=== PATIENT | female | born 1955 | race Caucasian/White ===

== ENCOUNTER → 2021-12-24 09:45 | Outpatient (BNVA) | payer MEDICARE, SELFPAY | PROVIDERS: Family Provider Family Medicine; PCP Registered Nurse; Visit Provider Registered Nurse | DX: E11.9 Type 2 diabetes mellitus without complications (principal); M79.10 Myalgia, unspecified site; R53.83 Other fatigue | CPT/HCPCS: 80053; 80061; 82607; 83036; 85025; 85651; 86140 ==

== ENCOUNTER → 2022-04-11 11:55 | Outpatient (BNVA) | payer MEDICARE, SELFPAY | PROVIDERS: Family Provider Family Medicine; PCP Registered Nurse; Referring Provider Registered Nurse; Visit Provider Anesthesiology Pain Medicine | DX: M54.50 Low back pain, unspecified (principal); M79.604 Pain in right leg; M79.605 Pain in left leg | CPT/HCPCS: 72120; 99204 ==

== ENCOUNTER 2022-05-08 10:00 | Outpatient (CLI) | payer MEDICARE, SELFPAY ==
--- NOTE | 2022-05-08 10:15 | MR_ITS ---
WS: [id number] MRI LUMBAR SPINE NONCONTRAST TECHNIQUE: Sagittal T1, T2 and STIR imaging. Axial T1 and T2 imaging. CLINICAL INFORMATION: M48.062 - Spinal stenosis, lumbar region with neurogenic ... COMPARISON: None. FINDINGS: Mild lumbar curve. No acute compression. Anterolisthesis L5 on S1 measuring 5 mm. Chronic spondylolysis. Disc space narrowing worse L5-S1. Sma ll central protrusions T8-T9 and T10-T11 L1-L2: Moderate facet arthropathy. Spinal canal and foramen are patent. L2-L3: No significant disc bulging. Moderate facet arthropathy. Spinal canal and foramen are patent. L3-L4: Mild annular bulging. Mild central canal stenosis. Narrowing of subarticular recess bilaterall y LEFT greater than RIGHT. Mild LEFT greater than RIGHT foraminal narrowing. Moderate facet arthropat hy with small facet effusions. L4-L5: Mild annular bulging with slight effacement of ventral thecal sac. Narrowing of the RIGHT suba rticular recess. Impingement traversing RIGHT L5 nerve root. Mild RIGHT and no significant LEFT jeri inal narrowing. Moderate facet arthropathy with small facet effusions. L5-S1: Grade 1 anterolisthesis with disc space narrowing. Mild disc bulging with slight effacement of ventral thecal sac. Moderate facet arthropathy. Mild to moderate RIGHT greater than LEFT foraminal n arrowing. Annular bulging with slight narrowing of the LEFT subarticular recess. Visualized pelvic bony structures: Normal. Paravertebral soft tissues: Normal. MR/MR lumbar spine wo con* [id number] IMPRESSION: 1. Mild lumbar curve. No acute compression. Grade 1 anterolisthesis L5 on S1 w ith chronic spondylolysis. 2. Mild central canal stenosis L3-L4 with impingement LEFT greater than RIGHT subarticular recess. 3. Annular bulging L4-L5 impinges the traversing RIGHT L5 nerve root in the pond barticular recess. Mild RIGHT L4-L5 foraminal narrowing. 4. Disc bulge L5-S1 with slight contact of the LEFT S1 nerve root. 5. Mild to moderate bilateral L5-S1 foraminal narrowing RIGHT greater than LEF T. 6. Moderate facet arthropathy L2-L3, L3-L4, L4-L5 and L5-S1. Small facet effus ions at L3-L4 and L4-L5.
== END 2022-05-08 10:01 | disposition home or self-care (01) ==
PROVIDERS: PCP Registered Nurse; Visit Provider Anesthesiology Pain Medicine
DX: M48.062 Spinal stenosis, lumbar region with neurogenic claudication (principal); M47.817 Spondylosis without myelopathy or radiculopathy, lumbosacral region; M48.07 Spinal stenosis, lumbosacral region; M51.37 Other intervertebral disc degeneration, lumbosacral region; M51.06 Intervertebral disc disorders with myelopathy, lumbar region
CPT/HCPCS: 72148

== ENCOUNTER → 2022-06-06 10:36 | Outpatient (BNVA) | payer MEDICARE, SELFPAY | PROVIDERS: PCP Registered Nurse; Visit Provider Anesthesiology Pain Medicine | DX: M54.50 Low back pain, unspecified (principal); M79.604 Pain in right leg; M79.605 Pain in left leg | CPT/HCPCS: 99214 ==

== ENCOUNTER → 2022-06-20 14:29 | Outpatient (BNVA) | payer MEDICARE, SELFPAY | PROVIDERS: PCP Registered Nurse; Visit Provider Anesthesiology Pain Medicine | DX: M54.16 Radiculopathy, lumbar region (principal); M79.604 Pain in right leg; M79.605 Pain in left leg | CPT/HCPCS: 64483; 64484; J1100; J3490 ==

== ENCOUNTER → 2022-07-02 09:48 | Outpatient (BNVA) | payer MEDICARE, SELFPAY | PROVIDERS: PCP Registered Nurse; Visit Provider Surgery | DX: K21.9 Gastro-esophageal reflux disease without esophagitis (principal); R13.10 Dysphagia, unspecified; R14.0 Abdominal distension (gaseous) | CPT/HCPCS: 99203 ==

== ENCOUNTER 2022-07-03 09:54 | Day surgery (SDC) | payer MEDICARE, SELFPAY ==
[2022-07-02 11:26] VITALS: BMI 37.2
[2022-07-03 10:53] VITALS: BP 188/98; PULSE 68; RESP 14; TEMP 36.6; O2SAT 96
[2022-07-03] MEDS: sodium chloride 0.9% 1,000 ML 30 ML IV (11:13)
[2022-07-03 11:19] LABS: Glucose Point of Care 134 mg/dL (70-110)
--- NOTE | 2022-07-03 12:23 | P.ANESASSM_ITS ---
Pre-Anesthetic Assessment Height/Weight: Height 1.6 m Weight 95.254 kg Temp Pulse Resp BP Pulse Ox O2 Del Method 98 F 68 14 188/98 96 Room Air 07/03/22 10:53 07/03/22 10:53 07/03/22 10:53 07/03/22 10:53 07/03/22 10:53 07/03/22 10:53 Operation Date: 07/03/22 11:45 Proposed Procedures p EGD Dilation W/ Balloon [id number],K21.9<R13.10(Not Applicable) - Rob Guerrero DO Familial anesthetic complications: none Was Beta Bc taken within 24 hours: N/A Was Clonidine taken within 24 hours: N/A Last intake: Intake Last Liquid Date 07/02/22 Last Liquid Time 17:00 Last Solid Date 07/02/22 Last Solid Time 17:00 Social No alcohol and No tobacco Exam alert, oriented x 3, clear to auscultation bilaterally and regular rate & rhythm Airway Submandibular: within normal limits Cervical ROM: within normal limits Mallampati: Class I Dentition: full Pulmonary None reported CV/HEM Hypertension Hepatic None reported GI Gastroesophageal Reflux Disease (controlled) Metabolic Diabetes Mellitus and Morbid Obesity [facility] [place] Fibromyalgia, Lower Back Pain and Osteoarthritis/DJD Neuropsych Anxiety Anesthetic Plan ASA status: 3 Anesthesia: MAC Risk of > 500 ml blood loss (7ml/kg in children): No Medications/Allergies Home Medications Medication Instructions Recorded Confirmed Last Taken Type amlodipine 10 mg tablet 10 mg PO DAILY 12/24/21 07/03/22 07/02/22 History lisinopril 10 mg tablet 10 mg PO DAILY 12/24/21 07/03/22 07/02/22 History metformin 500 mg tablet 500 mg PO DAILY 12/24/21 07/03/22 07/02/22 History hydrocodone 5 mg-acetaminophen 325 1 tab PO .DAY PRN Pain 04/11/22 07/03/22 Unknown History mg tablet pantoprazole 40 mg tablet,delayed 40 mg PO BID 6 weeks #84 tabs 07/02/22 07/03/22 Unknown Rx release (Protonix) Allergies Allergy/AdvReac Type Severity Reaction Status Date / Time No Known Allergies Allergy Verified 07/02/22 11:23 Current Medications Generic Name Dose Route Start Last Admin Trade Name Freq PRN Reason Stop Dose Admin Sodium Chloride 1,000 mls @ 30 mls/hr 07/03/22 10:45 07/03/22 11:13 Sodium Chloride 0.9% IV 07/04/22 10:44 30 mls/hr .Q24H CHANTELLE Administration PFSH Anesthesia Medical History Arthritis Diabetes mellitus Fibromyalgia Hyperlipidemia Hypertension Surgical History History of cholecystectomy History of colon resection History of ovarian cystectomy History of tubal ligation Family History Mother CAD (coronary artery disease) Cancer Diabetes Hyperlipidemia Hypertension Sister Cancer Diabetes Hyperlipidemia Hypertension Denies family history of Clotting disorder Dementia Chronic kidney disease (CKD) Lung disease Stroke Social History Smoking and tobacco status: never smoked Second hand smoke exposure: No Alcohol intake: never Substance/Drug Use: never Adopted: No Caregiver/support person: No Lives independently: No Household members: spouse Marital status: service: No Current occupational status: retired Sexually active: Yes Do you think of yourself as: Straight/Heterosexual Current gender identity: Female Data Anesthesia Cardiac Studies: No Data to Display
--- NOTE | 2022-07-03 12:30 | W.PM.OPSUD ---
Surgery/Procedure H&P Update DATE OF PROCEDURE: July 03, 2022 DATE H&P PERFORMED: 07/02/22 H&P UPDATE INFORMATION: I have reviewed H&P completed within last 30 days, I have examined patient prior to procedure and No changes to prior documentation PLANNED PROCEDURE: Operation Date: 07/03/22 11:45 Proposed Procedures p EGD Dilation W/ Balloon [id number],K21.9<R13.10(Not Applicable) - Rob Guerrero, DO
[2022-07-03 12:44] VITALS: BP 128/65; PULSE 58; RESP 18; TEMP 36.5; O2SAT 98
[2022-07-03 12:49] VITALS: BP 145/77; PULSE 58; RESP 18; O2SAT 97
[2022-07-03 12:59] VITALS: BP 140/82; PULSE 56; RESP 18; O2SAT 97
--- NOTE | 2022-07-03 15:39 | ANE.PACU2 ---
Inpatient post-anesthesia follow up: Airway intact: Yes Vital signs: Temperature 97.7 F Pulse Rate 56 Respiratory Rate 18 Blood Pressure 140/82 Pulse Oximetry 97 Oxygen Delivery Me thod Room Air Oxygen Flow Rate 2 Fraction of Inspir ed Oxygen Hydration adequate: Yes Nausea and vomiting: No Pain level: 1 Mental status: Baseline
== END 2022-07-03 13:14 | disposition home or self-care (01) ==
PROVIDERS: PCP Registered Nurse; Visit Provider Surgery
DX: K21.9 Gastro-esophageal reflux disease without esophagitis (principal); R13.10 Dysphagia, unspecified; E11.9 Type 2 diabetes mellitus without complications; E66.01 Morbid (severe) obesity due to excess calories; Z68.37 Body mass index [BMI] 37.0-37.9, adult; R14.0 Abdominal distension (gaseous)
CPT/HCPCS: 36416; 43239; 82962; 88305; J2704; J7030

== ENCOUNTER → 2022-07-04 14:00 | Outpatient (BNVA) | payer MEDICARE, SELFPAY | PROVIDERS: PCP Registered Nurse; Visit Provider Anesthesiology Pain Medicine | DX: M54.16 Radiculopathy, lumbar region (principal); M79.604 Pain in right leg; M79.605 Pain in left leg | CPT/HCPCS: 64483; 64484; J1100; J3490 ==

== ENCOUNTER → 2022-07-18 16:54 | Outpatient (BNVA) | payer MEDICARE, SELFPAY | PROVIDERS: PCP Registered Nurse; Visit Provider Surgery | DX: Z09 Encounter for follow-up examination after completed treatment for conditions other than malignant neoplasm (principal) | CPT/HCPCS: 99024; 99212 ==

== ENCOUNTER → 2022-07-25 10:02 | Outpatient (BNVA) | payer MEDICARE, SELFPAY | PROVIDERS: PCP Registered Nurse; Visit Provider Anesthesiology Pain Medicine | DX: M51.37 Other intervertebral disc degeneration, lumbosacral region (principal); M79.604 Pain in right leg; M79.605 Pain in left leg | CPT/HCPCS: 99214 ==

== ENCOUNTER → 2022-08-12 13:05 | Outpatient (BNVA) | payer MEDICARE, SELFPAY | PROVIDERS: PCP Registered Nurse; Visit Provider Anesthesiology Pain Medicine | DX: M47.816 Spondylosis without myelopathy or radiculopathy, lumbar region (principal); M79.604 Pain in right leg; M79.605 Pain in left leg | CPT/HCPCS: 64493; 64494; 64495; J3490 ==

== ENCOUNTER → 2022-09-05 09:08 | Outpatient (BNVA) | payer MEDICARE, SELFPAY | PROVIDERS: PCP Registered Nurse; Visit Provider Anesthesiology Pain Medicine | DX: M51.37 Other intervertebral disc degeneration, lumbosacral region (principal); M79.604 Pain in right leg; M79.605 Pain in left leg | CPT/HCPCS: 99214 ==

== ENCOUNTER → 2022-10-07 09:49 | Outpatient (BNVA) | payer MEDICARE, SELFPAY | PROVIDERS: PCP Registered Nurse; Visit Provider Anesthesiology Pain Medicine | DX: M54.16 Radiculopathy, lumbar region (principal); M79.604 Pain in right leg; M79.605 Pain in left leg | CPT/HCPCS: 99214 ==

== ENCOUNTER → 2022-11-07 09:43 | Outpatient (BNVA) | payer MEDICARE, SELFPAY | PROVIDERS: PCP Registered Nurse; Visit Provider Anesthesiology Pain Medicine | DX: M79.604 Pain in right leg; M79.605 Pain in left leg; M43.16 Spondylolisthesis, lumbar region; M48.061 Spinal stenosis, lumbar region without neurogenic claudication; M47.816 Spondylosis without myelopathy or radiculopathy, lumbar region | CPT/HCPCS: 99214 ==

== ENCOUNTER → 2023-09-19 09:18 | Outpatient (BNVA) | payer MEDICARE, SELFPAY | PROVIDERS: PCP Registered Nurse; Visit Provider Nurse Practitioner Family | DX: D48.5 Neoplasm of uncertain behavior of skin (principal); L57.0 Actinic keratosis; L82.0 Inflamed seborrheic keratosis; L30.4 Erythema intertrigo; L82.1 Other seborrheic keratosis; D22.39 Melanocytic nevi of other parts of face; L81.4 Other melanin hyperpigmentation | CPT/HCPCS: 11102; 17000; 17110; 99204 ==

== ENCOUNTER → 2024-04-30 14:21 | Outpatient (BNVA) | payer MEDICARE, SELFPAY | PROVIDERS: PCP Registered Nurse; Visit Provider Registered Nurse | DX: J32.9 Chronic sinusitis, unspecified (principal) | CPT/HCPCS: 87400 ==

== ENCOUNTER → 2024-10-13 15:23 | Outpatient (BNVA) | payer MEDICARE, SELFPAY | PROVIDERS: PCP Registered Nurse; Visit Provider Nurse Practitioner Family | DX: D22.39 Melanocytic nevi of other parts of face (principal); L81.4 Other melanin hyperpigmentation; D48.5 Neoplasm of uncertain behavior of skin | CPT/HCPCS: 11102; 99213 ==

== ENCOUNTER → 2024-11-02 09:50 | Outpatient (BNVA) | payer MEDICARE, SELFPAY | PROVIDERS: PCP Registered Nurse; Visit Provider Registered Nurse | DX: E11.9 Type 2 diabetes mellitus without complications (principal); E55.9 Vitamin D deficiency, unspecified | CPT/HCPCS: 80053; 80061; 81000; 82306; 82607; 83036; 85025 ==

== ENCOUNTER 2024-12-30 17:19 | Emergency (ER) | payer MEDICARE, SELFPAY ==
[2024-12-30 17:22] VITALS: BP 175/87; PULSE 64; RESP 17; TEMP 36.4; O2SAT 100; BMI 37.2
--- OUTSIDE RECORDS SUMMARY | 2024-12-30 17:24 | XMS_ITS | Encounter Summary ---
Author Organization [facility] Address [address] [place] [address] Care Team Providers Care Casing In Line Feeder Name Role Phone Trudy Huynh MD Primary Care Provider +1- [phone] Encounter Details Date Type Department Care Team (Latest Contact Info) Description 03/18/2000 Outpatient Historical [facility] Medicine [address] [phone] Krishan Aguilar MD Rectal/anal hemorrhage (Primary Dx) Social History Tobacco Use Types Packs/Day Years Used Date Smoking Tobacco: Never Assessed Comments Unknown Sex and Gender Information Value Date Recorded Sex Assigned at Not on file 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
--- OUTSIDE RECORDS SUMMARY | 2024-12-30 17:24 | XMS_ITS | Encounter Summary ---
Author Organization [email or web address] [facility] Address [address] [place] [address] Care Team Providers Care Strip Presser Name Role Phone Trudy Huynh MD Primary Care Provider +1- [phone] Encounter Details Date Type Department Care Team (Late st Contact Info) Description 11/12/2018 Ancillary Orders [facility] [address] [place] [address] Trudy Huynh MD [address] [place] [address] Right upper quadrant pain Social History Tobacco Use Types Packs/Day Years Used Date Smoking Tobacco: Never Alcohol Use Standard Drinks/Week Comments No 0 (1 standard drink = 0.6 oz pur e alcohol) Feeling Safe Answer Date Recorded Within the last year, have y ou been afraid of your partner or ex-partner? Patient declined 06/17/2018 Within the last year, have y ou been humiliated or emotionally abused in other ways by your partner or ex-partner? Patient declined 06/17/2018 Within the last year, have y ou been kicked, hit, slapped, or otherwise physically hurt by your partner or ex-partner? Patient declined 06/17/2018 Within the last year, have y ou been raped or forced to have any kind of sexual activity by your partner or ex-partner? Patient declined 06/17/2018 Social Connections Answer Date Recorded In a typical week, how many times do you talk on the phone with family, friends, or neighbors? Patient declined 06/17/2018 How often do you get togethe r with friends or relatives? Patient declined 06/17/2018 How often do you attend pentecostal or denominational serv ices? Patient declined 06/17/2018 Do you belong to any clubs o r organizations such as pentecostal groups, unions, fraternal or athletic groups, or school groups? Patient declined 06/17/2018 How often do you attend meet ings of the clubs or organizations you belong to? Patient declined 06/17/2018 Are you , , di vorced, , never , or living with a partner? Patient declined 06/17/2018 Financial Resource Strain Answer Date R ecorded How hard is it for you to pa y for the very basics like food, housing, medical care, and heating? Patient declined 06/17/2018 Food Insecurity Answer Date Recorded Within the past 12 months, y ou worried that your food would run out before you got the money to buy more. Patient declined Within the past 12 months, t he food you bought just didn't last and you didn't have money to get more. Patient declined Transportation Needs Answer Date Record ed In the past 12 months, has l ack of transportation kept you from medical appointments or from getting medications? Patient declined 06/17/2018 In the past 12 months, has l ack of transportation kept you from meetings, work, or from getting things needed for daily living? 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
--- OUTSIDE RECORDS SUMMARY | 2024-12-30 17:24 | XMS_ITS | Encounter Summary ---
Author Organization [facility] Address [address] [place] [address] Care Team Providers Care Dish Carrier Name Role Phone Trudy Huynh MD Primary Care Provider +1- [phone] Encounter Details Date Type Department Care Team (Late st Contact Info) Description 06/08/2018 Ancillary Orders [facility] Admitting [address] [place] [address] Trudy Huynh MD [address] [place] [address] Pain in left shoulder Social History Tobacco Use Types Packs/Day Years Used Date Smoking Tobacco: Never Alcohol Use Standard Drinks/Week Comments No 0 (1 standard drink = 0.6 oz pur e alcohol) Comments No Sex and Gender Information Value Date Recorded Sex Assigned at Not on file 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 Narrative 06/08/2018 1:35 PM CDT Exam: XR SHOULDER 2+ VW LEFT Date/Time of Exam: 06/08/2018 12:51 PM Reason For Exam: See Diagnosis. Diagnosis: Pain in left shoulder. Comparison: None. Findings: There is no evidence of an acute fracture or dislocation. The joints appear well-maintained. The bone density and soft tissues appear appropriate. Procedure Note Arik Ann, DO - 06/08/2018 Exam: XR SHOULDER 2+ VW LEFT Date/Time of Exam: 06/08/2018 12:51 PM Reason For Exam: See Diagnosis. Diagnosis: Pain in left shoulder. Comparison: None. Findings: There is no evidence of an acute fracture or dislocation. The joints appear well-maintained. The bone density and soft tissues appear appropriate. IMPRESSION: No acute osseous or specific articular abnormality. us Trudy Huynh MD DIAGNOSTIC IMAGING ORDERAB LES Final Result documented in this encounter Visit Diagnoses Diagnosis Pain in left shoulder Pain in joint, shoulder region Pain in left shoulder Pain in joint, shoulder region documented in this encounter Care Teams Dish Carrier Relationship Specialty Start Date End Date Trudy Huynh MD [address] [place] [address] PCP - General Family Practice 08/29/14 documented as of this encounter
--- OUTSIDE RECORDS SUMMARY | 2024-12-30 17:24 | XMS_ITS | Encounter Summary ---
Author Organization [facility] Address [address] [place] [address] Care Team Providers Care Technician Terminal And Repeater Name Role Phone Trudy Huynh MD Primary Care Provider +1- [phone] Encounter Details Date Type Department Care Team (Latest Contact Info) Description 03/11/2000 Outpatient Historical [facility] Medicine [address] [phone] Krishan Aguilar MD Rectal/anal hemorrhage (Primary Dx) Social History Tobacco Use Types Packs/Day Years Used Date Smoking Tobacco: Never Assessed Comments Unknown Sex and Gender Information Value Date Recorded Sex Assigned at Not on file 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
--- OUTSIDE RECORDS SUMMARY | 2024-12-30 17:24 | XMS_ITS | Encounter Summary ---
Author Organization [facility] Address [address] [place] [address] Care Team Providers Care Acoustical Carpenter Name Role Phone Trudy Huynh MD Primary Care Provider +1- [phone] Reason for Referral * Radiology Services (Routine) - Closed Specialty Diagnoses / Procedures Referred By Contac t Referred To Contact Radiology Diagnoses Asymptomatic menopausal state Procedures XR DEXA BONE DENSITY AXIAL 1 OR MORE SITES Trudy Huynh MD [address] [place] [address] Phone: tel: fax: [facility] [address] [facility] [address] [place] [address] Phone: tel: fax: Referral ID Status Reason Start Date Expiration Date V isits Requested Visits Authorized [id number] Closed [facility] View CTS to Schedule 02/01/2020 03/03/2021 1 1 DRIVER Encounter Details Date Type Department Care Team (Latest Contact Info) Description 02/01/[address] [facility] Scheduling [address] [facility] [address] [place] [address] Trudy Huynh MD [address] [place] [address] Asymptomatic menopausal state Social History Tobacco Use Types Packs/Day Years [...] declined 06/17/2018 How often do you attend rastafari or restorationist serv ices? 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 No / Unsure 02/02/2020 2:56 PM BUS DRIVER documented as of this encounter Plan of Treatment Not on file documented as of this encounter Results * XR DEXA BONE DENSITY AXIAL 1 OR MORE SITES (02/09/2020 1:55 PM BUS DRIVER) Anatomical Region Laterality Modality Digital Radiogra phy 02/09/2020 2:00 PM BUS DRIVER Impressions 02/09/2020 4:02 PM BUS DRIVER IMPRESSION: Bone mineral density values fall within the normal range. NOF guidelines recommend consideration of FDA-approved medical therapies in patients with FRAX determined 10-year probabilities of hip/major osteoporosis-related fractures equal or greater than 3%/20% respectively. Consider assessing fracture risk using the FRAX analysis tool for guidance of clinical management available online at www.shef.ac.uk/FRAX/. [employer] for Select DXA and the Femoral Neck BMD value. [id number] Narrative 02/09/2020 4:02 PM BUS DRIVER DEXA Evaluation of the Lumbar Spine and Left Proximal Femur Reason For Exam: See Diagnosis. Evaluation of bone mineral density. Diagnosis: Asymptomatic menopausal state. The following absorptiometry data were obtained. The quality of this examination is acceptable with regards to count density, processed images, data display and lack of important artifacts (including but not limited to motion and attenuation artifacts). Serial examination number 1. L1-L4 BMD (g/cm2): 1.113 Adult T-score: 0.6 LEFT FEMORAL NECK BMD (g/cm2): 0.823 Adult T-score: -0.2 LEFT TOTAL HIP BMD (g/cm2): 1.084 Adult T-score: 1.2 Procedure Note Rob Lui MD - 02/09/2020 DEXA Evaluation of the Lumbar Spine and Left Proximal Femur Reason For Exam: See Diagnosis. Evaluation of bone mineral density. Diagnosis: Asymptomatic menopausal state. The following absorptiometry data were obtained. The quality of this examination is acceptable with regards to count density, processed images, data display and lack of important artifacts (including but not limited to motion and attenuation artifacts). Serial examination number 1. L1-L4 BMD (g/cm2): 1.113 Adult T-score: 0.6 LEFT FEMORAL NECK BMD (g/cm2): 0.823 Adult T-score: -0.2 LEFT TOTAL HIP BMD (g/cm2): 1.084 Adult T-score: 1.2 IMPRESSION: Bone mineral density values fall within the normal range. NOF guidelines recommend consideration of FDA-approved medical therapies in patients with FRAX determined 10-year probabilities of hip/major osteoporosis-related fractures equal or greater than 3%/20% respectively. Consider assessing fracture risk using the FRAX analysis tool for guidance of clinical management available online at www.shef.ac.uk/FRAX/. Enter [employer] for Select DXA and the Femoral Neck BMD value. [id number] us Trudy Huynh MD DIAGNOSTIC IMAGING ORDERAB LES Final Result documented in this encounter Visit Diagnoses Diagnosis Asymptomatic menopausal state Asymptomatic postmenopausal status (age-related) (natural) Asymptomatic menopausal state Asymptomatic postmenopausal status (age-related) (natural) documented in this encounter Care Teams Acoustical Carpenter Relationship Specialty Start Date End Date Trudy Huynh MD [address] [place] [address] PCP - General Family Practice 08/29/14 documented as of this encounter
--- OUTSIDE RECORDS SUMMARY | 2024-12-30 17:24 | XMS_ITS | Encounter Summary ---
Author Organization [employer] [facility] Address [address] [place] [address] Care Team Providers Care Manager Privacy Name Role Phone Trudy Huynh MD Primary Care Provider +1- [phone] Encounter Details Date Type Department Care Team (Late st Contact Info) Description 11/12/2018 Ancillary Orders [facility] [address] [place] [address] Trudy Huynh MD [address] [place] [address] Right upper quadrant pain Social [...] declined 06/17/2018 How often do you attend scientologist or adventist serv ices? 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 Exam: XR RIBS UNILATERAL RIGHT W PA CHEST Date/Time of Exam: 11/12/2018 11:22 AM Reason For Exam: See Diagnosis. Diagnosis: Right upper quadrant pain. Findings: No apparent acute osseous pathology of imaged skeleton with specific attention to right ribs. Lungs and cardiac silhouette unremarkable. No pleural effusion or pneumothorax. IMPRESSION: No apparent acute pathology. Narrative Procedure Note Pat Jones MD - 11/12/2018 IMPRESSION: Please see below. Exam: XR RIBS UNILATERAL RIGHT W PA CHEST Date/Time of Exam: 11/12/2018 11:22 AM Reason For Exam: See Diagnosis. Diagnosis: Right upper quadrant pain. Findings: No apparent acute osseous pathology of imaged skeleton with specific attention to right ribs. Lungs and cardiac silhouette unremarkable. No pleural effusion or pneumothorax. IMPRESSION: No apparent acute pathology. us Trudy Huynh MD DIAGNOSTIC IMAGING ORDERAB LES Final Result documented in this encounter Visit Diagnoses Diagnosis Right upper quadrant pain Abdominal pain, right upper quadrant Right upper quadrant pain Abdominal pain, right upper quadrant documented in this encounter Care Teams Manager Privacy Relationship Specialty Start Date End Date Trudy Huynh MD [address] [place] [address] PCP - General Family Practice 08/29/14 documented as of this encounter
--- OUTSIDE RECORDS SUMMARY | 2024-12-30 17:24 | XMS_ITS | Encounter Summary ---
Author Organization [employer] [facility] Address [address] [place] [address] Care Team Providers Care Gas Maker Name Role Phone Trudy Huynh MD Primary Care Provider +1- [phone] Encounter Details Date Type Department Care Team (Late st Contact Info) Description 02/25/2019 Ancillary Orders [employer] [place] [address] [place] [address] Trudy Huynh MD [address] [place] [address] Dorsalgia, unspecified Social History Tobacco Use Types Packs/Day Years [...] declined 06/17/2018 How often do you attend christianity or methodist serv ices? 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 Exam: XR LUMBAR SPINE 2 OR 3 VW Date/Time of Exam: 02/25/2019 3:35 PM Reason For Exam: See Diagnosis. Diagnosis: Dorsalgia, unspecified. Findings: The lumbar spine shows mild anterior subluxation at L5-S1 apparently from pars defects. Moderate to prominent disc space narrowing is seen. The spine above L5 is unremarkable. The SI joints and hips are grossly normal. IMPRESSION: L5 spondylolysis, grade 1 spondylolisthesis and moderate to prominent bony DDD changes at L5-S1. Narrative Procedure Note Nathaniel Ma MD - 02/26/2019 IMPRESSION: Please see below. Exam: XR LUMBAR SPINE 2 OR 3 VW Date/Time of Exam: 02/25/2019 3:35 PM Reason For Exam: See Diagnosis. Diagnosis: Dorsalgia, unspecified. Findings: The lumbar spine shows mild anterior subluxation at L5-S1 apparently from pars defects. Moderate to prominent disc space narrowing is seen. The spine above L5 is unremarkable. The SI joints and hips are grossly normal. IMPRESSION: L5 spondylolysis, grade 1 spondylolisthesis and moderate to prominent bony DDD changes at L5-S1. us Trudy Huynh MD DIAGNOSTIC IMAGING ORDERAB LES Final Result documented in this encounter Visit Diagnoses Diagnosis Dorsalgia, unspecified Dorsalgia, unspecified documented in this encounter Care Teams Gas Maker Relationship Specialty Start Date End Date Trudy Huynh MD [address] [place] [address] PCP - General Family Practice 08/29/14 documented as of this encounter
--- OUTSIDE RECORDS SUMMARY | 2024-12-30 17:24 | XMS_ITS | Clinical Summary ---
Author Organization [facility] Address [address] [place] [address] Phone Care Team Providers Care Employment Service Specialist Name Role Phone Trudy Huynh MD Primary Care Provider +1- [phone] Allergies Active Allergy Reactions Criticality Noted Date Comments Aspirin Other (See Comments) 08/19/2016 Rapid heart rate Medications lisinopril (PRINIVIL) 20 mg tablet Take 20 mg by mouth daily. Active amLODIPine (NORVASC) 10 mg tablet Take 10 mg by mouth daily. Active hydroCHLOROthia zide (MICROZIDE) 12.5 mg capsule Take 12.5 mg by mouth daily. Active ERGOCALCIFEROL, VITAMIN D2, (VITAMIN D ORAL) Take by mouth. Active metFORMIN (GLUCOPHAGE) 500 mg tablet Take 500 mg by mouth daily with breakfast. Active ALPRAZolam (XANAX) 0.5 mg tablet Take 0.5 mg by mouth nightly as needed for Anxiety. Active Active Problems Problem Noted Date Diagnosed Date Chest pain 08/20/2016 Benign hypertension 08/20/2016 Family History Medical History Relation Name Comments Coronary Artery Disease Mother Relation Name Status Comments Mother s/p CABG in her 50's Social History Tobacco Use Types Packs/Day Years [...] declined 06/17/2018 How often do you attend latter-day or samaritan serv ices? 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 Gender Identity Not on file Sexual Orientation Not on file Last Filed Vital Signs Vital Sign Reading Time Taken Comments Blood Pressure 168/71 06/17/2018 11:01 PM CDT Pulse 76 06/17/2018 11:01 PM CDT Temperature 9 C (48.2 F) 06/17/2018 11:47 PM CDT Respiratory Rate 20 06/17/2018 11:01 PM CDT Oxygen Saturation 99% 06/17/2018 11:01 PM CDT Inhaled Oxygen Concentration - - Weight 88.5 kg (195 lb) 06/17/2018 10:31 PM CDT Height 160 cm (5' 3 ) 06/17/2018 10:31 PM CDT Body Mass Index 34.54 06/17/2018 10:31 PM CDT Plan of Treatment Health Maintenance Due Date Last Done Comments DTAP/TDAP/TD VACCINES (1 - Tdap) 1972 BREAST CANCER SCREENING 1993 COLORECTAL SCREENING 1998 FIT-DNA Q 3 years 1998 FIT/FOBT Q 1 year 1998 PNEUMOCOCCAL VACCINE 50+ YEARS (1 of 1 - PCV) 10/21/19 04 ZOSTER VACCINE (1 of 2) 10/21/2003 Colorectal Cancer Screening 03/18/2005 Flex Sig/CT Colonography Q 5 years 03/18/20052000 INFLUENZA VACCINE (#1) 2024 OSTEOPOROSIS SCREENING 02/08/2025 02/09/2020 RSV VACCINE (60+ or ) (1 - 1-dose 75+ series) 2028 Procedures Procedure Name Priority Date/Time Associated Diagnosis Comments XR DEXA BONE DENSITY AXIAL 1 OR MORE SITES Routine 02/09/2020 1:55 PM ELECTRONIC SALES AND SERVICE TECHNICIAN Asymptomatic menopausal state from Last 3 Months or Most Recently Relevant to Health Maintenance Results * XR DEXA BONE DENSITY AXIAL 1 OR MORE SITES (02/09/2020 1:55 PM ELECTRONIC SALES AND SERVICE TECHNICIAN) Anatomical Region Laterality Modality Digital Radiogra phy 02/09/2020 2:00 PM ELECTRONIC SALES AND SERVICE TECHNICIAN Impressions 02/09/2020 4:02 PM ELECTRONIC SALES AND SERVICE TECHNICIAN IMPRESSION: Bone mineral density values fall within the normal range. NOF guidelines recommend consideration of FDA-approved medical therapies in patients with FRAX determined 10-year probabilities of hip/major osteoporosis-related fractures equal or greater than 3%/20% respectively. Consider assessing fracture risk using the FRAX analysis tool for guidance of clinical management available online at www.shef.ac.uk/FRAX/. Enter [employer] for Select DXA and the Femoral Neck BMD value. [id number] Narrative 02/09/2020 4:02 PM ELECTRONIC SALES AND SERVICE TECHNICIAN DEXA Evaluation of the Lumbar Spine and [...] clinical management available online at www.shef.ac.uk/FRAX/. Enter [employer] for Select DXA and the Femoral Neck BMD value. [id number] us Trudy Huynh MD DIAGNOSTIC IMAGING ORDERAB LES Final Result from Last 3 Months or Most Recently Relevant to Health Maintenance Insurance BLUE CROSS [employer]WAY(X) EXCHANGE Member Subscriber Plan / Payer (Ef fective 2018-Present) Name:Yenni Carmona Relation to Subscriber:Spouse Name:ALICE CARMONA Date of :1956 (Home) Address: [address] [place], [place] [address] [place] [address] Payer ID:[id number] (NAIC) Type:[employer] Address: [address] EPO Advance Directives For more information, please contact: [phone] * Full Code (Latest Code Status on File) Date Activated Date Inactivated Comments 08/20/2016 3:14 AM 08/21/2016 1:26 PM Care Teams Employment Service Specialist Relationship Specialty Start Date End Date Trudy Huynh MD [address] [place] [address] PCP - General Family Practice 08/29/14
--- OUTSIDE RECORDS SUMMARY | 2024-12-30 17:24 | XMS_ITS | Clinical Summary ---
Author Organization [facility] Address [address] Attn: Epic Prelude [place]T [place] [address] Care Team Providers Care Surveillance Manager Name Role Phone Trudy Huynh MD Primary Care Provider +1- [phone] Allergies Active Allergy Reactions Criticality Noted Date Comments Aspirin Other (See Comments) 08/19/2016 Rapid heart rate Medications metFORMIN (GLUCOPHAGE) 500 mg tablet Take 500 mg by mouth daily with breakfast. 06/17/2018 Active ALPRAZolam (XANAX) 0.5 mg tablet Take 0.5 mg by mouth nightly as needed for Anxiety. 06/17/2018 Active lisinopriL (PRINIVIL) 20 mg tablet Take 20 mg by mouth daily. 08/19/2016 Active amLODIPine (NORVASC) 10 mg tablet Take 10 mg by mouth daily. 08/19/2016 Active hydroCHLOROthia zide (MICROZIDE) 12.5 mg capsule Take 12.5 mg by mouth daily. 08/19/2016 Active ergocalciferol, vitamin D2, (VITAMIN D ORAL) Take by mouth. 08/19/2016 Active Active Problems Problem Noted Date Diagnosed Date Benign hypertension 08/20/2016 Chest pain 08/20/2016 Encounters Date Type Department Care Team Description 12/15/2024 External Device Data ST[facility] ABSTRACTION Provider, Abstract 12/14/2024 External Device Data ST[facility] ABSTRACTION Provider, Abstract 11/16/2024 External Device Data [facility] ABSTRACTION Provider, Abstract 11/09/2024 External Device Data ST[facility] ABSTRACTION Provider, Abstract 11/02/2024 External Device Data ST[facility] ABSTRACTION Provider, Abstract 2024 Orders Only [facility] [address] [place] [address] Shyam Marrero MD 10/19/2024 1:15 PM CDT Office Visit [facility] [place] [id number] [place] [address] Shyam Marrero MD Arthrosis of left acromioclavicular joint; Chronic left shoulder pain from Last 3 Months Family History Medical History Relation Name Comments Coronary Artery Disease Mother Relation Name Status Comments Mother s/p CABG in her 50's Social History Tobacco Use Types Packs/Day Years Used Date Smoking Tobacco: Never Alcohol Use Standard Drinks/Week Comments No 0 (1 standard drink = 0.6 oz pur e alcohol) Comments Unknown Sex and Gender Information Value Date Recorded Sex Assigned at Not on file Legal Sex Female 12:58 AM ELECTRICAL ENGINEERING DESIGNER Gender Identity Not on file Sexual Orientation Not on file Last Filed Vital Signs Vital Sign Reading Time Taken Comments Blood Pressure 138/70 10/19/2024 12:47 PM CDT Pulse 76 06/17/2018 11:01 PM CDT Temperature 9 C (48.2 F) 06/17/2018 11:47 PM CDT Respiratory Rate 20 06/17/2018 11:01 PM CDT Oxygen Saturation - - Inhaled Oxygen Concentration - - Weight 96.2 kg (212 lb) 10/19/2024 12:47 PM CDT Height 160 cm (5' 3 ) 10/19/2024 12:47 PM CDT Body Mass Index 37.55 10/19/2024 12:47 PM CDT Plan of Treatment Upcoming Encounters Date Type Department Care Team (Latest Contact Info) Description 02/07/2025 10:31 AM ELECTRICAL ENGINEERING DESIGNER Hospital Encounter [facility] [address] [place] [address] Shyam Marrero MD [address] [place] [address] Arthrosis of left acromioclavicular joint 02/07/2025 10:31 AM ELECTRICAL ENGINEERING DESIGNER - 02/07/2025 12:21 PM ELECTRICAL ENGINEERING DESIGNER Surgery [facility] [address] [place] [id number] Shyam Marrero MD [address] [place] [phone] SHOULDER ARTHROSCOPY 03/01/2025 10:45 AM ELECTRICAL ENGINEERING DESIGNER Office Visit [facility] [address] [place] [phone] Deann Brooks PA [address] [place] [phone] Scheduled Procedures Name Priority Associated Diagnoses Date/Ti me SHOULDER ARTHROSCOPY Arthrosis of left acromioclavicular joint 02/07/2025 10:31 AM ELECTRICAL ENGINEERING DESIGNER SHOULDER W/ DISTAL CLAVICLE RESECTION ARTHROSCOPIC Arthrosis of left acromioclavicular joint 02/07/2025 10:31 AM ELECTRICAL ENGINEERING DESIGNER Health Maintenance Due Date Last Done Comments DTAP/TDAP/TD VACCINES (1 - Tdap) 1972 BREAST CANCER SCREENING 1993 COLORECTAL SCREENING 1998 Colorectal Cancer Screening 1998 FIT-DNA Q 3 years 1998 FIT/FOBT Q 1 year 1998 Flex Sig/CT Colonography Q 5 years 1998 PNEUMOCOCCAL VACCINE 50+ YEA RS (1 of 1 - PCV) 10/21/2003 ZOSTER VACCINE (1 of 2) 10/21/2003 Medicare Advantage ([place]) Prev entative Visit/Annual Wellness Visit 02/25/2024 INFLUENZA VACCINE (#1) 2024 COVID-19 Vaccine (3 - 2024- season) 10/25/202402/2020, 09/23/2020 RSV VACCINE (60+ or ) (1 - 1-dose 75+ series) 2028 OSTEOPOROSIS SCREENING 03/10/2029 5, 02/09/2020, 02/09/2020 Goals Goal Patient Goal Type Associated Problems Recent Progress Patient-Stated? Author Autogenerat ed Goal Care Plan Autogenerated Problem No Hoda Guerrero Procedures Procedure Name Priority Date/Time Associated Diagnosis Comments XR DEXA BONE DENSITY AXIAL 1 OR MORE SITES Routine 03/10/2024 9:16 AM ELECTRICAL ENGINEERING DESIGNER Asymptomatic postmenopausal status from Last 3 Months or Most Recently Relevant to Health Maintenance Results * (ABNORMAL) XR DEXA BONE DENSITY AXIAL 1 OR MORE SITES (03/10/2024 9:16 AM ELECTRICAL ENGINEERING DESIGNER) T-SCORE HIP (LEFT) 1.00 -1.0 - 1.0 INTERFACE SYSTEM T-SCORE SPINE 1.20(A) -1.0 - 1.0 INTER FACE SYSTEM Anatomical Region Laterality Modality Digital Radiogra phy, Mammography 03/10/2024 9:17 AM ELECTRICAL ENGINEERING DESIGNER Impressions 03/10/2024 10:21 AM ELECTRICAL ENGINEERING DESIGNER IMPRESSION: Bone mineral density values fall within the normal range as above. NOF guidelines recommend consideration of FDA-approved medical therapies in patients with FRAX determined 10-year probabilities of hip/major osteoporosis-related fractures equal or greater than 3%/20% respectively. Consider assessing fracture risk using the FRAX analysis tool for guidance of clinical management available online at www.shef.ac.uk/FRAX/. Enter [employer] for Select DXA and the Femoral Neck BMD value. Narrative 03/10/2024 10:21 AM ELECTRICAL ENGINEERING DESIGNER DEXA Evaluation of the Lumbar Spine and Left Proximal Femur Reason For Exam: See Diagnosis. Evaluation of bone mineral density. Diagnosis: Asymptomatic postmenopausal status. The following absorptiometry data were obtained. The quality of this examination is acceptable with regards to count density, processed images, data display and lack of important artifacts (including but not limited to motion and attenuation artifacts). Serial examination number 2. L1-L4 BMD (g/cm2): 1.175 Adult T-score: 1.2 LEFT FEMORAL NECK BMD (g/cm2): 0.783 Adult T-score: -0.6 LEFT TOTAL HIP BMD (g/cm2): 1.066 Adult T-score: 1 Procedure Note Rob Lui MD - 03/10/2024 DEXA Evaluation of the Lumbar Spine and Left Proximal Femur Reason For Exam: See Diagnosis. Evaluation of bone mineral density. Diagnosis: Asymptomatic postmenopausal status. The following absorptiometry data were obtained. The quality of this examination is acceptable with regards to count density, processed images, data display and lack of important artifacts (including but not limited to motion and attenuation artifacts). Serial examination number 2. L1-L4 BMD (g/cm2): 1.175 Adult T-score: 1.2 LEFT FEMORAL NECK BMD (g/cm2): 0.783 Adult T-score: -0.6 LEFT TOTAL HIP BMD (g/cm2): 1.066 Adult T-score: 1 IMPRESSION: Bone mineral density values fall within the normal range as above. NOF guidelines recommend consideration of FDA-approved medical therapies in patients with FRAX determined 10-year probabilities of hip/major osteoporosis-related fractures equal or greater than 3%/20% respectively. Consider assessing fracture risk using the FRAX analysis tool for guidance of clinical management available online at www.shef.ac.uk/FRAX/. Enter [employer]reet for Select DXA and the Femoral Neck BMD value. Trudy Huynh MD DIAGNOSTIC IMAGING ORDERAB LES Final Result from Last 3 Months or Most Recently Relevant to Health Maintenance Additional Health Concerns Active Problems Noted Date Diagnosed Date Autogenerated Problem 2024 Insurance BCBS MEDICARE HMO Care Teams Surveillance Manager Relationship Specialty Start Date End Date Trudy Huynh MD [address] [place] [address] PCP - General Family Practice 08/29/14
--- NOTE | 2024-12-30 17:42 | XRR_ITS ---
PROCEDURE INFORMATION: Exam: XR Abdomen Exam date and time: 12/30/2024 6:27 PM Age: 69 years old Clinical indication: Abdominal pain; Generalized; Additional info: Abd pain TECHNIQUE: Imaging protocol: Radiologic exam of the abdomen. Views: Frontal supine view of the abdomen. 1 View. COMPARISON: MR lumbar spine wo con* [id number] 05/08/2022 10:38 AM FINDINGS: Gastrointestinal tract: Normal. No bowel dilation. Organs: Status post cholecystectomy. Bones/joints: Unremarkable. XR/XR abdomen 1V* [id number] IMPRESSION: No acute findings.
[2024-12-30 17:53] LABS: Glucose Urine UA Negative (Normal); Nitrate Urine Negative (Negative); Specific Gravity, Urine 1.007 (1.005-1.030)
[2024-12-30 17:58] LABS: Add Urine Microscopic? YES
[2024-12-30 18:26] LABS: Hematocrit 41.2 % (36-47); Hemoglobin 13.80 g/dL (11.27-16.99); Mean Corpuscular HGB Conc 33.5 g/dL (30-55); Mean Corpuscular Hemoglobin 30.5 pg (27-33); Mean Corpuscular Volume 90.9 fl (85-98); Nucleated Red Blood Cells % 0 %; Platelet Count 273 10^3/cmm (157-399); Red Blood Count 4.53 10^6/uL (3.85-5.65); White Blood Count 11.48 10^3/uL (3.29-11.43)
--- NOTE | 2024-12-30 18:36 | W.ED.ABDPA2 ---
HPI - Abdominal Pain General: Chief Complaint: Abdominal Pain Stated Complaint: abd pain / bloating Time Seen by Provider: 12/30/24 18:32 Related Data Home Medications ?Medication ?Instructions ?Recorded ?Confirmed lisinopril 10 mg tablet 10 mg PO DAILY 12/24/21 12/22/24 metformin 500 mg tablet 500 mg PO DAILY 12/24/21 12/22/24 Previous Rx's ?Medication ?Instructions ?Recorded alprazolam 0.25 mg tablet 0.25 mg PO ONCE PRN anxiety 30 11/09/24 days #10 tabs amlodipine 10 mg tablet 10 mg PO DAILY #90 tabs 11/24/24 hydrocodone 5 mg-acetaminophen 325 1 tab PO Q8H PRN pain 5 days #15 12/24/24 mg tablet tabs Allergies Allergy/AdvReac Type Severity Reaction Status Date / Time No Known Allergies Allergy Verified 12/22/24 10:05 [facility] ED PFSH: Medical History (Updated 11/10/24 @ 09:22 by PAULO Nath) Hyperlipidemia Fibromyalgia Arthritis Primary hypertension Type 2 diabetes mellitus without complication, without long-term current use of insulin Surgical History History of colon resection History of ovarian cystectomy History of tubal ligation History of cholecystectomy Family History Mother CAD (coronary artery disease) Cancer Diabetes Hyperlipidemia Hypertension Sister Cancer Diabetes Hyperlipidemia Hypertension Denies family history of Clotting disorder Dementia Chronic kidney disease (CKD) Lung disease Stroke Social History Smoking and tobacco/nicotine status: never used tobacco/nicotine Second hand smoke exposure: No Alcohol intake: never Substance/Drug Use: never Adopted: No Caregiver/support person: No Lives independently: No Household members: spouse Marital status: service: No Current occupational status: retired Sexually active: Yes Do you think of yourself as: Straight/Heterosexual Current gender identity: Female Course Vital Signs: Vital signs: Vital Signs Temperature 97.6 F 12/30/24 17:22 Pulse Rate 64 12/30/24 17:22 Respiratory Rate 17 12/30/24 17:22 Blood Pressure 175/87 12/30/24 17:22 Pulse Oximetry 100 12/30/24 17:22 Oxygen Delivery Me thod Room Air 12/30/24 17:22 MDM - Abdominal Pain Lab Data 12/30/24 18:14 12/30/24 18:14 Labs/Radiology: Laboratory Results WBC 11.48 10^3/uL (3.29-11.43) H 12/30/24 18:14 RBC 4.53 10^6/uL (3.85-5.65) 12/30/24 18:14 Hgb 13.80 g/dL (11.27-16.99) 12/30/24 18:14 Hct 41.2 % (36-47) 12/30/24 18:14 MCV 90.9 fl (85-98) 12/30/24 18:14 MCH 30.5 pg (27-33) 12/30/24 18:14 MCHC 33.5 g/dL (30-55) 12/30/24 18:14 RDW 12.3 % (12.1-15.1) 12/30/24 18:14 Plt Count 273 10^3/cmm (157-399) 12/30/24 18:14 MPV 10.5 fL (7.4-10.4) H 12/30/24 18:14 Neut % (Auto) 59.0 % 12/30/24 18:14 Lymph % (Auto) 33.3 % 12/30/24 18:14 [place] % (Auto) 6.1 % 12/30/24 18:14 Eos % (Auto) 0.8 % 12/30/24 18:14 Baso % (Auto) 0.5 % 12/30/24 18:14 Neut # (Auto) 6.78 10^3/uL (1.8-7.7) 12/30/24 18:14 Lymph # (Auto) 3.8 10^3/uL (0.8-4.8) 12/30/24 18:14 [place] # (Auto) 0.7 10^3/uL (0.2-0.9) 12/30/24 18:14 Eos # (Auto) 0.1 10^3/uL (0.0-0.8) 12/30/24 18:14 Baso # (Auto) 0.1 10^3/uL (0.0-0.1) 12/30/24 18:14 Nucleated RBC % (auto) 0 % 12/30/24 18:14 Nucleated RBCs # 0.0 /100WBC 12/30/24 18:14 Urine Color Yellow (Yellow) 12/30/24 17:42 Urine Appearance Clear (CLEAR) 12/30/24 17:42 Urine pH 6.5 (5-7) 12/30/24 17:42 Ur Specific [place] 1.007 (1.005-1.030) 12/30/24 17:42 Urine Protein Negative (Negative) 12/30/24 17:42 Urine Glucose (UA) Negative (Normal) 12/30/24 17:42 Urine Ketones Trace (Negative) 12/30/24 17:42 Urine Blood Negative (Negative) 12/30/24 17:42 Urine Nitrate Negative (Negative) 12/30/24 17:42 Urine Bilirubin Negative (Negative) 12/30/24 17:42 Urine Urobilinogen 0.2 mg/dL (Negative) 12/30/24 17:42 Ur Leukocyte Esterase Negative (Negative) 12/30/24 17:42 Urine RBC 0-2 /hpf (0-2) 12/30/24 17:42 Urine WBC 0-5 /hpf (0-5) 12/30/24 17:42 Ur Squamous Epith Cells 0-5 /hpf (0-5) 12/30/24 17:42 Amorphous Sediment Not Reportable 12/30/24 17:42 Urine Bacteria None seen /hpf (NONE) 12/30/24 17:42 Hyaline Casts 0-4 /lpf H 12/30/24 17:42 Discharge Plan Discharge Condition: Stable Prescriptions: No Action metformin 500 mg tablet 500 mg PO DAILY lisinopril 10 mg tablet 10 mg PO DAILY alprazolam 0.25 mg tablet 0.25 mg PO ONCE PRN (Reason: anxiety) 30 Days Qty: 10 1RF amlodipine 10 mg tablet 10 mg PO DAILY Qty: 90 0RF hydrocodone-acetaminophen 5-325 mg tablet 1 tab PO Q8H PRN (Reason: pain) 5 Days Qty: 15 0RF Referrals: Jannet Aceves, DRIER ATTENDANT [Primary Care Provider, Family Practice] Patient Instructions: Abdominal Pain (ED) Print Language: Lebanese Coding Level of Care Code ED Optician Apprentice Dispensing for g Leonor
[2024-12-30 18:45] LABS: Alanine Aminotransferase 32 U/L (0-33); Albumin Level 4.5 g/dL (3.5-5.2); Alkaline Phosphatase 71 U/L (35-105); Anion Gap 18.5 (5-19); Aspartate Amino Transferase 34 U/L (0-32); Blood Urea Nitrogen 15 mg/dL (8-23); Calcium 9.7 mg/dL (8.5-10.5); Carbon Dioxide 26 mmol/L (22-29); Chloride 96 mmol/L (98-107); Creatinine Clr Calc Pharmacy 70.8093; Globulin 3.7 g/dL (1.3-4.6); Glucose 124 mg/dL (65-115); Lipase 34 U/L (13-60); Osmolality Calculated 286 mOsm/kg (285-295); Potassium 3.5 mmol/L (3.5-5.1); Sodium 137 mmol/L (136-145); Total Protein 8.2 g/dL (6.6-8.7)
[2024-12-30 18:46] LABS: Lactic Sepsis W/Reflex 1.4 mmol/L (0.5-2.2)
--- NOTE | 2024-12-30 19:12 | CTR_ITS ---
PROCEDURE INFORMATION: Exam: CT Abdomen And Pelvis With Contrast Exam date and time: 12/30/2024 7:59 PM Age: 69 years old Clinical indication: Bloating and other: Abdominal bloating, trouble eating TECHNIQUE: Imaging protocol: Computed tomography of the abdomen and pelvis with contrast. Radiation optimization: All CT scans at this facility use at least one of these dose optimization techniques: automated exposure control; mA and/or kV adjustment per patient size (includes targeted exams where dose is matched to clinical indication); or iterative reconstruction. Contrast material: [id number]; Contrast volume: 100 ml; Contrast route: INTRAVENOUS (IV); COMPARISON: CR (ABDOMEN, ) 12/30/2024 6:27 PM RADIATION DOSE METRICS: Total DLP (mGy-cm): 916.63 FINDINGS: Lungs: Pulmonary nodule in the left lower lobe measuring 6 mm series 3, image 6. Follow-up as per Fleischner criteria. Esophagus: Moderate circumferential mucosal thickening of the distal esophagus to the gastroesophageal junction which is nonspecific but can be seen in esophagitis related to gastroesophageal reflux. Liver: Hepatic steatosis. Gallbladder and biliary ducts: Status post cholecystectomy. Pancreas: Normal. No ductal dilation. Spleen: Normal. No splenomegaly. Adrenal glands: Normal. No mass. Kidneys and ureters: Normal. No hydronephrosis. Stomach and bowel: Surgical clips descending colon. The appendix is not discretely visualized. No right lower quadrant inflammatory changes. Appendix: See Stomach and bowel finding. Intraperitoneal space: Unremarkable. No free air. No significant fluid collection. Vasculature: Unremarkable. No abdominal aortic aneurysm. Lymph nodes: Unremarkable. No enlarged lymph nodes. Urinary bladder: Unremarkable as visualized. Reproductive: Unremarkable as visualized. Bones/joints: Severe degenerative disc disease L5-S1 with at least moderate bilateral neural foraminal stenosis. Soft tissues: Unremarkable. CT/CT abdomen pelvis w con* [id number] IMPRESSION: 1. Moderate circumferential mucosal thickening of the distal esophagus to the gastroesophageal junction which is nonspecific but can be seen in esophagitis related to gastroesophageal reflux. 2. Hepatic steatosis. 3. Status post cholecystectomy. 4. Pulmonary nodule in the left lower lobe measuring 6 mm series 3, image 6. Follow-up as per Fleischner criteria. 5. Severe degenerative disc disease L5-S1 with at least moderate bilateral neural foraminal stenosis.
--- NOTE | 2024-12-30 19:12 | W.ED.ABDPA2 ---
HPI - Abdominal Pain General: Chief Complaint: Abdominal Pain Stated Complaint: abd pain / bloating Time Seen by Provider: 12/30/24 18:32 Source: patient and family Mode of arrival: ambulatory Limitations: no limitations History of Present Illness: Patient is a 69-year-old female presents to ED today with a complaint of diffuse abdominal bloating over the past 2 weeks or so. Patient feels like she is having trouble eating due to the discomfort of bloating. She has not overly complaining of abdominal pain although later states her abdomen does feel significantly uncomfortable. She states she is continuing to eat and drink. She has not had any episodes of vomiting. She does report passing gas and stool. She states she had a similar episode 2 years ago. She does follow with a GI specialist, Dr. Garduno, at the [facility] in [place]. She believes she has had some type of polyp removed at some point. She is not running fevers. No diarrhea. No bloody stools. thinks there might be some anxiety component as well. MD elicited complaint: abdominal pain Onset (ago): week(s) Pain Consistency: constant Location: Diffuse Severity: moderate Quality: other (bloating) Radiation: none Migration to: no migration Relieving factors: eating Associated Symptoms: Reports bloating; Denies change in bowel habits, chills, constipation, diarrhea, dysuria, fever(s), hematochezia, hematuria and vomiting Related Data Home Medications ?Medication ?Instructions ?Recorded ?Confirmed lisinopril 10 mg tablet 10 mg PO DAILY 12/24/21 12/22/24 metformin 500 mg tablet 500 mg PO DAILY 12/24/21 12/22/24 Previous Rx's ?Medication ?Instructions ?Recorded alprazolam 0.25 mg tablet 0.25 mg PO ONCE PRN anxiety 30 11/09/24 days #10 tabs amlodipine 10 mg tablet 10 mg PO DAILY #90 tabs 11/24/24 hydrocodone 5 mg-acetaminophen 325 1 tab PO Q8H PRN pain 5 days #15 12/24/24 mg tablet tabs famotidine 40 mg tablet (Pepcid) 40 mg PO DAILY #30 tabs 12/30/24 lorazepam 1 mg tablet (Ativan) 1 mg buccal BID PRN anxiety #20 12/30/24 tabs sucralfate 1 gram tablet (Carafate) 1 g PO TID 2 weeks #42 tabs 12/30/24 Allergies Allergy/AdvReac Type Severity Reaction Status Date / Time No Known Allergies Allergy Verified 12/22/24 10:05 Review of Systems Const: Denies: fever(s), chills, body aches, fatigue or malaise ENMT: Denies: throat pain, uvular edema, enlarged tonsils or odynophagia Card: Denies: chest pain Resp: Denies: dyspnea GI: Reports: abdominal pain (bloating), dysphagia and bloating; Denies: vomiting, diarrhea, constipation, change in bowel habits, rectal pain or hematochezia : Denies: flank pain, dysuria or hematuria Musc: Denies: neck pain, back pain, extremity pain, extremity swelling, joint pain or joint swelling Skin/Breast: Denies: rash Neuro: Denies: headache(s), numbness in extremities, weakness in extremities, sensory changes or dizziness PFSH ED PFSH: Medical History Hyperlipidemia Fibromyalgia Arthritis Primary hypertension Type 2 diabetes mellitus without complication, without long-term current use of insulin Surgical History History of colon resection History of ovarian cystectomy History of tubal ligation History of cholecystectomy Family History Mother CAD (coronary artery disease) Cancer Diabetes Hyperlipidemia Hypertension Sister Cancer Diabetes Hyperlipidemia Hypertension Denies family history of Clotting disorder Dementia Chronic kidney disease (CKD) Lung disease Stroke Social History Smoking and tobacco/nicotine status: never used tobacco/nicotine Second hand smoke exposure: No Alcohol intake: never Substance/Drug Use: never Adopted: No Caregiver/support person: No Lives independently: No Household members: spouse Marital status: service: No Current occupational status: retired Sexually active: Yes Do you think of yourself as: Straight/Heterosexual Current gender identity: Female Physical Exam Const: COMMON NORMALS: no acute distress, patient oriented x3, alert and well nourished GENERAL APPEARANCE: anxious NUTRITIONAL APPEARANCE: obese ORIENTATION/CONSCIOUSNESS: Yes awake, Yes oriented to person, Yes oriented to place and Yes oriented to time HENMT: COMMON NORMALS: normocephalic and atraumatic HEAD & SCALP: normocephalic and atraumatic THROAT: no uvular edema Neck/C-Spine: COMMON NORMALS: full ROM, no lymphadenopathy, supple and no meningeal signs Chest: COMMONS NORMALS: normal inspection of the chest Resp: COMMON NORMALS: normal respiratory effort and clear to auscultation bilaterally AUSCULTATION: clear to auscultation bilaterally Cardio: COMMON NORMALS: regular rate and regular rhythm RATE: regular rate RHYTHM: regular rhythm GI: COMMON NORMALS: Normal to inspection, nondistended, normoactive bowel sounds present, Soft to palpation, No hepatosplenomegaly present and no masses INSPECTION: Yes normal to inspection AUSCULTATION: Yes normoactive bowel sounds PALPATION: Yes Soft to palpation, Yes Tenderness to palpation present (GI) (diffuse tenderness), No Guarding due to palpation present (GI), No Rigid due to palpation and Yes No hepatosplenomegaly present Back/Pelvis: COMMON NORMALS: thoracic and lumbar spine normal to inspection Extremity: COMMON NORMALS: normal to inspection, capillary refill normal, no clubbing, cyanosis or edema, no calf tenderness and no pedal edema GENERAL: Yes normal exam except as noted Neuro: COMMON NORMALS: patient oriented x3, moves all extremities, no focal motor deficits, no sensory deficits noted and gait normal SENSORIUM/ORIENTATION: Yes alert, Yes oriented to person, Yes oriented to place and Yes oriented to time MENINGEAL SIGNS: Yes no meningeal signs Skin: COMMON NORMALS: no rashes or lesions noted GENERAL SKIN EXAM: no rashes or lesions noted Course Vital Signs: Vital signs: Vital Signs Temperature 97.6 F 12/30/24 17:22 Pulse Rate 68 12/30/24 19:30 Respiratory Rate 17 12/30/24 17:22 Blood Pressure 162/69 12/30/24 19:30 Pulse Oximetry 97 12/30/24 19:30 Oxygen Delivery Me thod Room Air 12/30/24 19:30 MDM - Abdominal Pain Medical Decision Making Patient's vital signs are stable apart from hypertension. Her blood work overall is nonactionable. UA is clear. CT scan showing moderate circumferential mucosal thickening to her distal esophagus that could be seen in esophagitis related to gastroesophageal reflux. She had been taking pantoprazole over the past week but does not feel like this medication has been helping. Will have her continue this and add an H2 and Carafate. Dietary modification/restrictions were discussed. I would like her to follow-up with her GI specialist to see about the need for an EGD. She did request anxiety medications while here and these were provided. states she appears significantly more comfortable . They were requesting a prescription to go home with which will be provided. Differential Diagnosis Likely abdominal pain, diverticulitis, gastroenteritis and small bowel obstruction Medical Records I reviewed the patient's medical records. Lab Data I reviewed the patient's lab results. 12/30/24 18:14 12/30/24 18:14 Labs/Radiology: Radiology Impressions Abdomen X-Ray 12/30/24 17:42 IMPRESSION: No acute findings. Abdomen/Pelvis CT 12/30/24 19:12 IMPRESSION: 1. Moderate circumferential mucosal thickening of the distal esophagus to the gastroesophageal junction which is nonspecific but can be seen in esophagitis related to gastroesophageal reflux. 2. Hepatic steatosis. 3. Status post cholecystectomy. 4. Pulmonary nodule in the left lower lobe measuring 6 mm series 3, image 6. Follow-up as per Fleischner criteria. 5. Severe degenerative disc disease L5-S1 with at least moderate bilateral neural foraminal stenosis. Laboratory Results WBC 11.48 10^3/uL (3.29-11.43) H 12/30/24 18:14 RBC 4.53 10^6/uL (3.85-5.65) 12/30/24 18:14 Hgb 13.80 g/dL (11.27-16.99) 12/30/24 18:14 Hct 41.2 % (36-47) 12/30/24 18:14 MCV 90.9 fl (85-98) 12/30/24 18:14 MCH 30.5 pg (27-33) 12/30/24 18:14 MCHC 33.5 g/dL (30-55) 12/30/24 18:14 RDW 12.3 % (12.1-15.1) 12/30/24 18:14 Plt Count 273 10^3/cmm (157-399) 12/30/24 18:14 MPV 10.5 fL (7.4-10.4) H 12/30/24 18:14 Neut % (Auto) 59.0 % 12/30/24 18:14 Lymph % (Auto) 33.3 % 12/30/24 18:14 Rhea % (Auto) 6.1 % 12/30/24 18:14 Eos % (Auto) 0.8 % 12/30/24 18:14 Baso % (Auto) 0.5 % 12/30/24 18:14 Neut # (Auto) 6.78 10^3/uL (1.8-7.7) 12/30/24 18:14 Lymph # (Auto) 3.8 10^3/uL (0.8-4.8) 12/30/24 18:14 Rhea # (Auto) 0.7 10^3/uL (0.2-0.9) 12/30/24 18:14 Eos # (Auto) 0.1 10^3/uL (0.0-0.8) 12/30/24 18:14 Baso # (Auto) 0.1 10^3/uL (0.0-0.1) 12/30/24 18:14 Nucleated RBC % (auto) 0 % 12/30/24 18:14 Nucleated RBCs # 0.0 /100WBC 12/30/24 18:14 Sodium 137 mmol/L (136-145) 12/30/24 18:14 Potassium 3.5 mmol/L (3.5-5.1) 12/30/24 18:14 Chloride 96 mmol/L (98-107) L 12/30/24 18:14 Carbon Dioxide 26 mmol/L (22-29) 12/30/24 18:14 Anion Gap 18.5 (5-19) 12/30/24 18:14 BUN 15 mg/dL (8-23) 12/30/24 18:14 Creatinine 0.8 mg/dL (0.5-0.9) 12/30/24 18:14 GFR Calculation Not Reportable 12/30/24 18:14 Glucose 124 mg/dL (65-115) H 12/30/24 18:14 Calculated Osmolality 286 mOsm/kg (285-295) 12/30/24 18:14 Lactic Acid 1.4 mmol/L (0.5-2.2) 12/30/24 18:14 Calcium 9.7 mg/dL (8.5-10.5) 12/30/24 18:14 Total Bilirubin 1.3 mg/dL (0.15-1.2) H 12/30/24 18:14 AST 34 U/L (0-32) H 12/30/24 18:14 ALT 32 U/L (0-33) 12/30/24 18:14 Alkaline Phosphatase 71 U/L (35-105) 12/30/24 18:14 Total Protein 8.2 g/dL (6.6-8.7) 12/30/24 18:14 Albumin 4.5 g/dL (3.5-5.2) 12/30/24 18:14 Globulin 3.7 g/dL (1.3-4.6) 12/30/24 18:14 Lipase 34 U/L (13-60) 12/30/24 18:14 Urine Color Yellow (Yellow) 12/30/24 17:42 Urine Appearance Clear (CLEAR) 12/30/24 17:42 Urine pH 6.5 (5-7) 12/30/24 17:42 Ur Specific [place] 1.007 (1.005-1.030) 12/30/24 17:42 Urine Protein Negative (Negative) 12/30/24 17:42 Urine Glucose (UA) Negative (Normal) 12/30/24 17:42 Urine Ketones Trace (Negative) 12/30/24 17:42 Urine Blood Negative (Negative) 12/30/24 17:42 Urine Nitrate Negative (Negative) 12/30/24 17:42 Urine Bilirubin Negative (Negative) 12/30/24 17:42 Urine Urobilinogen 0.2 mg/dL (Negative) 12/30/24 17:42 Ur Leukocyte Esterase Negative (Negative) 12/30/24 17:42 Urine RBC 0-2 /hpf (0-2) 12/30/24 17:42 Urine WBC 0-5 /hpf (0-5) 12/30/24 17:42 Ur Squamous Epith Cells 0-5 /hpf (0-5) 12/30/24 17:42 Amorphous Sediment Not Reportable 12/30/24 17:42 Urine Bacteria None seen /hpf (NONE) 12/30/24 17:42 Hyaline Casts 0-4 /lpf H 12/30/24 17:42 All radiology interpretation(s) finalized by discharge Discharge Plan Discharge Patient Disposition: Home Clinical Impression: Esophagitis, Bloating, Anxiety Condition: Stable Prescriptions: New sucralfate [Carafate] 1 gram tablet 1 g PO TID 14 Days Qty: 42 0RF famotidine [Pepcid] 40 mg tablet 40 mg PO DAILY Qty: 30 0RF lorazepam [Ativan] 1 mg tablet 1 mg buccal BID PRN (Reason: anxiety) Qty: 20 0RF No Action metformin 500 mg tablet 500 mg PO DAILY lisinopril 10 mg tablet 10 mg PO DAILY alprazolam 0.25 mg tablet 0.25 mg PO ONCE PRN (Reason: anxiety) 30 Days Qty: 10 1RF amlodipine 10 mg tablet 10 mg PO DAILY Qty: 90 0RF hydrocodone-acetaminophen 5-325 mg tablet 1 tab PO Q8H PRN (Reason: pain) 5 Days Qty: 15 0RF Discharge Orders: Discharge ED (Routine); Ordered 12/30/24 Ordered By: Sallie Bryant Referrals: Jannet Aceves, FINANCIAL ASSISTANCE SPECIALIST [Primary Care Provider, Family Practice] Patient Instructions: Abdominal Pain (ED), Esophagitis (ED), Patient Portal & Shelia Instructions Activity Restrictions/Additional Instructions: As we discussed, I want you to start taking 40 mg of your pantoprazole twice daily for the next week. You may then take 20 mg twice daily. You may take this medication with the Pepcid and Carafate that I prescribed to you as well. Avoid spicy, acidic, salty foods as these can worsen symptoms. I will place a case management referral to try to get you an appointment with your GI specialist in [place]. You may also try to contact their office for an appointment. You may use the Ativan sparingly as needed for severe anxiety. Print Language: Yi Coding Level of Care Code ED Ship Keeper for David Galvez
[2024-12-30 19:20] VITALS: BP 162/69; PULSE 67; O2SAT 98
[2024-12-30 19:30] VITALS: BP 162/69; PULSE 68; O2SAT 97
[2024-12-30] MEDS: LORazepam 2 mg/mL INJ 1 mL 1 MG IVP (19:49)
[2024-12-30] MEDS: iohexol 350 mg/mL 500 mL Btl (per mL) IV (20:01)
[2024-12-30 21:03] VITALS: BP 144/57; PULSE 63; O2SAT 97
--- NOTE | 2024-12-31 07:16 | DCPLANNER ---
Addendum entered by Jolene Damon 12/31/24 07:17: images pushed Original Note: faxed referral packet to [facility] - dr. henriquez [phone]
== END 2024-12-30 21:06 | disposition home or self-care (01) ==
PROVIDERS: Emergency Medicine; Emergency Provider Physician Assistant; PCP Registered Nurse
DX: K20.90 Esophagitis, unspecified without bleeding (principal); R14.0 Abdominal distension (gaseous); F41.9 Anxiety disorder, unspecified; Z79.84 Long term (current) use of oral hypoglycemic drugs; E78.5 Hyperlipidemia, unspecified; E11.9 Type 2 diabetes mellitus without complications; I10 Essential (primary) hypertension
CPT/HCPCS: 36415; 74018; 74177; 80053; 81001; 83605; 83690; 85025; 96374; 99285; J2060

== ENCOUNTER 2025-01-05 10:20 | Outpatient (CLI) | payer MEDICARE, SELFPAY ==
--- NOTE | 2025-01-05 10:20 | MM_ITS ---
WS: [id number] BILATERAL SCREENING DIGITAL TOMOSYNTHESIS MAMMOGRAM WITH CAD HISTORY: Z12.39 - Encounter for other screening for malignant neop... COMPARISON: 12/12/2023, 12/05/2022, 01/15/2022 Bilateral CC and MLO views with tomosynthesis and synthetic mammography submitted. Computer aided detection analyzed. Breast composition: There are scattered areas of fibroglandular density. No suspicious masses, microcalcifications or architectural distortion. No interval change in appearance of either breast. MM/MM scr tomosynthesis [id number] IMPRESSION: BI-RADS: 2 - Benign. FOLLOW UP: 1 Year Follow-up
== END 2025-01-05 10:21 | disposition home or self-care (01) ==
LOC: MOBLMAM 10:21
PROVIDERS: PCP Registered Nurse; Visit Provider Registered Nurse
DX: Z12.31 Encounter for screening mammogram for malignant neoplasm of breast (principal); R92.323 Mammographic fibroglandular density, bilateral breasts
CPT/HCPCS: 77063; 77067

== ENCOUNTER → 2025-02-01 09:27 | Outpatient (BNVA) | payer MEDICARE, SELFPAY | PROVIDERS: PCP Registered Nurse; Visit Provider Registered Nurse | DX: E11.9 Type 2 diabetes mellitus without complications (principal) | CPT/HCPCS: 82607; 83036; 85025 ==